=== PATIENT | female | born 1935 | race Hispanic/Latino ===

== ENCOUNTER 2022-09-12 14:08 | Inpatient (IN) | payer MEDICARE, BC, OTHER ==
[2022-09-12] MEDS ORDERED: Senokot S 8.6-50 MG TAB PO PRN (20:51)
[2022-09-12] MEDS ORDERED: [UNRECOGNIZED DRUG - REMARK] TOP PRN (20:51)
[2022-09-12 22:22] LABS: Bilirubin Small (Negative); Blood, Urine Negative (Negative); Clarity Clear (Clear); Glucose, Urine (Dipstick) Negative (Negative); Ketone, Urine Trace mg/dL (Negative); Leukocyte Negative (Negative); Nitrite Negative (Negative); Protein, Urine (Dipstick) 30 mg/dL (Neg-Trace); Urobilinogen > or = 8.0 mg/dL (Less than 2); pH, Urine 8.5 (5.0-9.0)
[2022-09-12 22:32] LABS: Bacteria/HPF Rare-Few HPF (None Seen); Mucous/LPF 1+ LPF (<2+); RBC/HPF None Seen HPF (0-3); Squamous Epithelial 0-3 HPF (0-3); WBC/HPF None Seen HPF (0-3)
[2022-09-12] MEDS: Dorzolamide HCl 2% Ophth Soln 10 ml Bottle EA EYE SCH (22:47)
[2022-09-12] MEDS: Latanoprost 0.005% Ophth Soln 2.5 ml Bottle EA EYE SCH (22:48)
[2022-09-12] MEDS: Metoprolol Tartrate 50 MG TAB PO SCH (22:49)
[2022-09-12] MEDS: Atorvastatin Calcium 40 MG TAB PO SCH (22:49)
[2022-09-12] MEDS: hydrALAZINE 25 MG TAB PO SCH (22:57)
[2022-09-12] MEDS: Timolol 0.5% Ophth Soln 5 ml Bottle EA EYE SCH (22:57)
[2022-09-13] MEDS: hydrALAZINE 25 MG TAB PO SCH ×3 (10:10→21:07)
[2022-09-13] MEDS: Potassium Chloride 20 MEQ TAB PO SCH (10:10)
[2022-09-13] MEDS: Amlodipine 5 MG TAB PO SCH (10:10)
[2022-09-13] MEDS: Saccharomyces boulardii 250 MG CAP PO SCH (10:11)
[2022-09-13] MEDS: Metoprolol Tartrate 50 MG TAB PO SCH ×2 (10:11→21:08)
[2022-09-13] MEDS: Losartan 25 MG TAB PO SCH (10:11)
[2022-09-13] MEDS: Timolol 0.5% Ophth Soln 5 ml Bottle EA EYE SCH ×2 (10:12→21:13)
[2022-09-13] MEDS: Dorzolamide HCl 2% Ophth Soln 10 ml Bottle EA EYE SCH ×2 (10:12→21:04)
[2022-09-13 12:18] VITALS: BMI 33.1
[2022-09-13] MEDS: Latanoprost 0.005% Ophth Soln 2.5 ml Bottle EA EYE SCH (21:04)
[2022-09-13] MEDS: Atorvastatin Calcium 40 MG TAB PO SCH (21:07)
[2022-09-13] MEDS: Acetaminophen 325 MG TAB PO PRN (21:09)
[2022-09-14 05:51] LABS: Anion Gap 11 mmol/L (10-20); BUN (Urea Nitrogen) 8 mg/dL (9.8-20.1); Calc. Creatinine Clearance 93 mL/min (70-130); Calcium 8.7 mg/dL (7.8-10.44); Carbon Dioxide 24 mmol/L (23-31); Chloride 107 mmol/L (98-107); Estimated GFR 90; Glucose 108 mg/dL (83-110); Potassium 3.6 mmol/L (3.5-5.1); Sodium 138 mmol/L (136-145)
[2022-09-14] MEDS: Metoprolol Tartrate 50 MG TAB PO SCH ×2 (09:34→20:08)
[2022-09-14] MEDS: Potassium Chloride 20 MEQ TAB PO SCH (09:35)
[2022-09-14] MEDS: Pantoprazole 40 MG GRANULES PACKET PO SCH (09:36)
[2022-09-14] MEDS: Losartan 25 MG TAB PO SCH (09:36)
[2022-09-14] MEDS: Amlodipine 5 MG TAB PO SCH (09:37)
[2022-09-14] MEDS: Saccharomyces boulardii 250 MG CAP PO SCH (09:38)
[2022-09-14] MEDS: hydrALAZINE 25 MG TAB PO SCH ×3 (09:38→20:08)
[2022-09-14] MEDS: Timolol 0.5% Ophth Soln 5 ml Bottle EA EYE SCH ×2 (09:39→20:09)
[2022-09-14] MEDS: Dorzolamide HCl 2% Ophth Soln 10 ml Bottle EA EYE SCH ×2 (09:40→20:05)
[2022-09-14] MEDS: Acetaminophen 325 MG TAB PO PRN (15:13)
[2022-09-14] MEDS: Atorvastatin Calcium 40 MG TAB PO SCH (20:07)
[2022-09-14] MEDS: Latanoprost 0.005% Ophth Soln 2.5 ml Bottle EA EYE SCH (20:16)
[2022-09-15] MEDS: Saccharomyces boulardii 250 MG CAP PO SCH (09:32)
[2022-09-15] MEDS: Pantoprazole 40 MG GRANULES PACKET PO SCH (09:32)
[2022-09-15] MEDS: Losartan 25 MG TAB PO SCH ×2 (09:32→10:02)
[2022-09-15] MEDS: Metoprolol Tartrate 50 MG TAB PO SCH ×2 (09:35→22:03)
[2022-09-15] MEDS: Acetaminophen 325 MG TAB PO PRN ×2 (09:40→22:03)
[2022-09-15] MEDS: Potassium Chloride 20 MEQ TAB PO SCH (09:40)
[2022-09-15] MEDS: Timolol 0.5% Ophth Soln 5 ml Bottle EA EYE SCH ×2 (09:57→21:28)
[2022-09-15] MEDS: Dorzolamide HCl 2% Ophth Soln 10 ml Bottle EA EYE SCH ×2 (10:00→21:48)
[2022-09-15] MEDS: Amlodipine 5 MG TAB PO SCH (10:01)
[2022-09-15] MEDS: hydrALAZINE 25 MG TAB PO SCH ×3 (10:03→22:04)
[2022-09-15] MEDS: Latanoprost 0.005% Ophth Soln 2.5 ml Bottle EA EYE SCH (22:01)
[2022-09-15] MEDS: Atorvastatin Calcium 40 MG TAB PO SCH (22:02)
[2022-09-16] MEDS: Potassium Chloride 20 MEQ TAB PO SCH (08:18)
[2022-09-16] MEDS: Losartan 25 MG TAB PO SCH (08:19)
[2022-09-16] MEDS: Amlodipine 5 MG TAB PO SCH (08:19)
[2022-09-16] MEDS: Pantoprazole 40 MG GRANULES PACKET PO SCH (08:21)
[2022-09-16] MEDS: hydrALAZINE 25 MG TAB PO SCH ×3 (08:21→21:47)
[2022-09-16] MEDS: Saccharomyces boulardii 250 MG CAP PO SCH (08:21)
[2022-09-16] MEDS: Metoprolol Tartrate 50 MG TAB PO SCH ×2 (08:21→21:47)
[2022-09-16] MEDS: Timolol 0.5% Ophth Soln 5 ml Bottle EA EYE SCH ×2 (08:22→21:19)
[2022-09-16] MEDS: Dorzolamide HCl 2% Ophth Soln 10 ml Bottle EA EYE SCH ×2 (08:27→21:47)
[2022-09-16] MEDS: Acetaminophen 325 MG TAB PO PRN ×2 (12:07→21:48)
[2022-09-16] MEDS: Latanoprost 0.005% Ophth Soln 2.5 ml Bottle EA EYE SCH (21:34)
[2022-09-16] MEDS: Atorvastatin Calcium 40 MG TAB PO SCH (21:47)
[2022-09-17] MEDS: Dorzolamide HCl 2% Ophth Soln 10 ml Bottle EA EYE SCH ×2 (08:50→21:25)
[2022-09-17] MEDS: Timolol 0.5% Ophth Soln 5 ml Bottle EA EYE SCH ×2 (08:51→21:19)
[2022-09-17] MEDS: hydrALAZINE 25 MG TAB PO SCH ×3 (08:52→21:27)
[2022-09-17] MEDS: Pantoprazole 40 MG GRANULES PACKET PO SCH (08:55)
[2022-09-17] MEDS: Losartan 25 MG TAB PO SCH (08:57)
[2022-09-17] MEDS: Saccharomyces boulardii 250 MG CAP PO SCH (08:57)
[2022-09-17] MEDS: Metoprolol Tartrate 50 MG TAB PO SCH ×2 (08:57→21:27)
[2022-09-17] MEDS: Amlodipine 5 MG TAB PO SCH (08:58)
[2022-09-17] MEDS: Potassium Chloride 20 MEQ TAB PO SCH (08:58)
[2022-09-17] MEDS: Acetaminophen 325 MG TAB PO PRN ×2 (15:10→21:27)
[2022-09-17] MEDS: Latanoprost 0.005% Ophth Soln 2.5 ml Bottle EA EYE SCH (21:13)
[2022-09-17] MEDS: Atorvastatin Calcium 40 MG TAB PO SCH (21:27)
[2022-09-18] MEDS: Acetaminophen 325 MG TAB PO PRN ×3 (04:20→21:31)
[2022-09-18] MEDS: hydrALAZINE 25 MG TAB PO SCH ×3 (08:04→21:30)
[2022-09-18] MEDS: Losartan 25 MG TAB PO SCH (08:04)
[2022-09-18] MEDS: Amlodipine 5 MG TAB PO SCH (08:05)
[2022-09-18] MEDS: Potassium Chloride 20 MEQ TAB PO SCH (08:05)
[2022-09-18] MEDS: Saccharomyces boulardii 250 MG CAP PO SCH (08:05)
[2022-09-18] MEDS: Pantoprazole 40 MG GRANULES PACKET PO SCH (08:06)
[2022-09-18] MEDS: Metoprolol Tartrate 50 MG TAB PO SCH ×2 (08:06→21:30)
[2022-09-18] MEDS: Dorzolamide HCl 2% Ophth Soln 10 ml Bottle EA EYE SCH ×2 (08:18→21:30)
[2022-09-18] MEDS: Timolol 0.5% Ophth Soln 5 ml Bottle EA EYE SCH ×2 (08:20→21:43)
[2022-09-18] MEDS: Latanoprost 0.005% Ophth Soln 2.5 ml Bottle EA EYE SCH (21:20)
[2022-09-18] MEDS: Atorvastatin Calcium 40 MG TAB PO SCH (21:30)
[2022-09-19 05:31] LABS: ALT (SGPT) 24 U/L (8-55); AST (SGOT) 27 U/L (5-34); Albumin 3.3 g/dL (3.4-4.8); Alkaline Phosphatase 102 U/L (40-110); Anion Gap 13 mmol/L (10-20); BUN (Urea Nitrogen) 14 mg/dL (9.8-20.1); Bilirubin, Total 0.7 mg/dL (0.2-1.2); Calc. Creatinine Clearance 81 mL/min (70-130); Calcium 9.2 mg/dL (7.8-10.44); Carbon Dioxide 22 mmol/L (23-31); Chloride 108 mmol/L (98-107); Estimated GFR 87; Globulin 2.5 g/dL (2.4-3.5); Glucose 101 mg/dL (83-110); Potassium 3.7 mmol/L (3.5-5.1); Protein, Total 5.8 g/dL (5.8-8.1); Sodium 139 mmol/L (136-145)
[2022-09-19] MEDS: Dorzolamide HCl 2% Ophth Soln 10 ml Bottle EA EYE SCH ×2 (08:41→21:30)
[2022-09-19] MEDS: Timolol 0.5% Ophth Soln 5 ml Bottle EA EYE SCH ×2 (08:41→21:29)
[2022-09-19] MEDS: Acetaminophen 325 MG TAB PO PRN (08:42)
[2022-09-19] MEDS: Potassium Chloride 20 MEQ TAB PO SCH (08:43)
[2022-09-19] MEDS: Amlodipine 5 MG TAB PO SCH (08:44)
[2022-09-19] MEDS: Losartan 25 MG TAB PO SCH (08:44)
[2022-09-19] MEDS: Pantoprazole 40 MG GRANULES PACKET PO SCH (08:45)
[2022-09-19] MEDS: Metoprolol Tartrate 50 MG TAB PO SCH ×2 (08:45→21:29)
[2022-09-19] MEDS: hydrALAZINE 25 MG TAB PO SCH ×3 (08:45→21:28)
[2022-09-19] MEDS: Saccharomyces boulardii 250 MG CAP PO SCH (08:45)
[2022-09-19] MEDS: Atorvastatin Calcium 40 MG TAB PO SCH (21:29)
[2022-09-19] MEDS: Latanoprost 0.005% Ophth Soln 2.5 ml Bottle EA EYE SCH (21:30)
[2022-09-20] MEDS: Acetaminophen 325 MG TAB PO PRN (08:38)
[2022-09-20] MEDS: Dorzolamide HCl 2% Ophth Soln 10 ml Bottle EA EYE SCH ×2 (08:39→20:32)
[2022-09-20] MEDS: Timolol 0.5% Ophth Soln 5 ml Bottle EA EYE SCH ×2 (08:41→20:32)
[2022-09-20] MEDS: hydrALAZINE 25 MG TAB PO SCH ×3 (08:42→20:32)
[2022-09-20] MEDS: Metoprolol Tartrate 50 MG TAB PO SCH ×2 (08:42→20:32)
[2022-09-20] MEDS: Pantoprazole 40 MG GRANULES PACKET PO SCH (08:42)
[2022-09-20] MEDS: Saccharomyces boulardii 250 MG CAP PO SCH (08:43)
[2022-09-20] MEDS: Amlodipine 5 MG TAB PO SCH (08:43)
[2022-09-20] MEDS: Potassium Chloride 20 MEQ TAB PO SCH (08:43)
[2022-09-20] MEDS: Losartan 25 MG TAB PO SCH (08:44)
[2022-09-20] MEDS: Atorvastatin Calcium 40 MG TAB PO SCH (20:32)
[2022-09-20] MEDS: Latanoprost 0.005% Ophth Soln 2.5 ml Bottle EA EYE SCH (20:33)
[2022-09-21] MEDS: Saccharomyces boulardii 250 MG CAP PO SCH (09:06)
[2022-09-21] MEDS: Potassium Chloride 20 MEQ TAB PO SCH (09:06)
[2022-09-21] MEDS: Pantoprazole 40 MG GRANULES PACKET PO SCH (09:06)
[2022-09-21] MEDS: Losartan 25 MG TAB PO SCH (09:08)
[2022-09-21] MEDS: hydrALAZINE 25 MG TAB PO SCH ×3 (09:08→20:38)
[2022-09-21] MEDS: Dorzolamide HCl 2% Ophth Soln 10 ml Bottle EA EYE SCH ×2 (09:09→20:52)
[2022-09-21] MEDS: Amlodipine 5 MG TAB PO SCH (09:09)
[2022-09-21] MEDS: Metoprolol Tartrate 50 MG TAB PO SCH ×2 (09:09→20:53)
[2022-09-21] MEDS: Timolol 0.5% Ophth Soln 5 ml Bottle EA EYE SCH ×2 (09:12→20:52)
[2022-09-21] MEDS: Acetaminophen 325 MG TAB PO PRN ×2 (11:29→20:51)
[2022-09-21] MEDS: Atorvastatin Calcium 40 MG TAB PO SCH (20:38)
[2022-09-21] MEDS: Latanoprost 0.005% Ophth Soln 2.5 ml Bottle EA EYE SCH (20:52)
[2022-09-22 05:43] LABS: ALT (SGPT) 16 U/L (8-55); AST (SGOT) 18 U/L (5-34); Albumin 3.5 g/dL (3.4-4.8); Alkaline Phosphatase 96 U/L (40-110); Anion Gap 13 mmol/L (10-20); BUN (Urea Nitrogen) 14 mg/dL (9.8-20.1); Bilirubin, Total 0.9 mg/dL (0.2-1.2); Calc. Creatinine Clearance 83 mL/min (70-130); Calcium 9.1 mg/dL (7.8-10.44); Carbon Dioxide 23 mmol/L (23-31); Chloride 106 mmol/L (98-107); Estimated GFR 87; Globulin 2.7 g/dL (2.4-3.5); Glucose 122 mg/dL (83-110); Potassium 3.7 mmol/L (3.5-5.1); Protein, Total 6.2 g/dL (5.8-8.1); Sodium 138 mmol/L (136-145)
[2022-09-22 06:02] LABS: Hemoglobin 11.5 g/dL (12.0-16.0); Lymphocytes 20 % (21-51); MDiff Complete? YES; Mean Corpuscular Volume 88.4 fl (78.0-98.0); Mean Platelet Volume 8.2 fL (7.4-10.4); Monocytes 15 % (0-10); Neutrophil 64 % (42-75); Platelet Count 141 10x3/uL (130-400); RBC Distribution Width 14.4 % (11.5-14.5); Red Blood Cell (RBC) Count 3.83 mill/uL (4.20-5.40); White Blood Cell (WBC) Count 5.5 10x3/uL (4.8-10.8)
[2022-09-22] MEDS: hydrALAZINE 25 MG TAB PO SCH ×3 (09:04→21:24)
[2022-09-22] MEDS: Potassium Chloride 20 MEQ TAB PO SCH (09:04)
[2022-09-22] MEDS: Losartan 25 MG TAB PO SCH (09:05)
[2022-09-22] MEDS: Saccharomyces boulardii 250 MG CAP PO SCH (09:06)
[2022-09-22] MEDS: Amlodipine 5 MG TAB PO SCH (09:07)
[2022-09-22] MEDS: Dorzolamide HCl 2% Ophth Soln 10 ml Bottle EA EYE SCH ×2 (09:11→21:42)
[2022-09-22] MEDS: Metoprolol Tartrate 50 MG TAB PO SCH ×2 (09:12→21:24)
[2022-09-22] MEDS: Pantoprazole 40 MG GRANULES PACKET PO SCH (09:13)
[2022-09-22] MEDS: Timolol 0.5% Ophth Soln 5 ml Bottle EA EYE SCH ×2 (09:14→21:43)
[2022-09-22] MEDS: Acetaminophen 325 MG TAB PO PRN (13:37)
[2022-09-22] MEDS: Atorvastatin Calcium 40 MG TAB PO SCH (21:24)
[2022-09-22] MEDS: Latanoprost 0.005% Ophth Soln 2.5 ml Bottle EA EYE SCH (21:42)
[2022-09-23] MEDS: Dorzolamide HCl 2% Ophth Soln 10 ml Bottle EA EYE SCH ×2 (08:53→20:10)
[2022-09-23] MEDS: Timolol 0.5% Ophth Soln 5 ml Bottle EA EYE SCH ×2 (08:54→20:16)
[2022-09-23] MEDS: Acetaminophen 325 MG TAB PO PRN ×2 (08:55→15:09)
[2022-09-23] MEDS: Pantoprazole 40 MG GRANULES PACKET PO SCH (08:56)
[2022-09-23] MEDS: Amlodipine 5 MG TAB PO SCH (08:56)
[2022-09-23] MEDS: Losartan 25 MG TAB PO SCH (08:57)
[2022-09-23] MEDS: Potassium Chloride 20 MEQ TAB PO SCH (08:57)
[2022-09-23] MEDS: Metoprolol Tartrate 50 MG TAB PO SCH ×2 (08:59→20:11)
[2022-09-23] MEDS: hydrALAZINE 25 MG TAB PO SCH ×3 (08:59→20:11)
[2022-09-23] MEDS: Saccharomyces boulardii 250 MG CAP PO SCH (09:03)
[2022-09-23] MEDS: Atorvastatin Calcium 40 MG TAB PO SCH (20:11)
[2022-09-23] MEDS: Latanoprost 0.005% Ophth Soln 2.5 ml Bottle EA EYE SCH (20:21)
[2022-09-24] MEDS: Potassium Chloride 20 MEQ TAB PO SCH (09:05)
[2022-09-24] MEDS: Losartan 25 MG TAB PO SCH (09:06)
[2022-09-24] MEDS: Saccharomyces boulardii 250 MG CAP PO SCH (09:06)
[2022-09-24] MEDS: hydrALAZINE 25 MG TAB PO SCH ×3 (09:06→21:00)
[2022-09-24] MEDS: Metoprolol Tartrate 50 MG TAB PO SCH ×2 (09:07→21:00)
[2022-09-24] MEDS: Amlodipine 5 MG TAB PO SCH (09:07)
[2022-09-24] MEDS: Pantoprazole 40 MG GRANULES PACKET PO SCH (09:07)
[2022-09-24] MEDS: Dorzolamide HCl 2% Ophth Soln 10 ml Bottle EA EYE SCH ×2 (09:21→20:58)
[2022-09-24] MEDS: Timolol 0.5% Ophth Soln 5 ml Bottle EA EYE SCH ×2 (09:21→21:08)
[2022-09-24] MEDS: Atorvastatin Calcium 40 MG TAB PO SCH (21:00)
[2022-09-24] MEDS: Latanoprost 0.005% Ophth Soln 2.5 ml Bottle EA EYE SCH (21:14)
[2022-09-25] MEDS: Potassium Chloride 20 MEQ TAB PO SCH (08:54)
[2022-09-25] MEDS: Amlodipine 5 MG TAB PO SCH (08:55)
[2022-09-25] MEDS: Pantoprazole 40 MG GRANULES PACKET PO SCH (08:55)
[2022-09-25] MEDS: Metoprolol Tartrate 50 MG TAB PO SCH ×2 (08:55→21:06)
[2022-09-25] MEDS: Losartan 25 MG TAB PO SCH (08:55)
[2022-09-25] MEDS: hydrALAZINE 25 MG TAB PO SCH ×3 (08:55→21:06)
[2022-09-25] MEDS: Dorzolamide HCl 2% Ophth Soln 10 ml Bottle EA EYE SCH ×2 (08:56→21:21)
[2022-09-25] MEDS: Timolol 0.5% Ophth Soln 5 ml Bottle EA EYE SCH ×2 (08:56→21:13)
[2022-09-25] MEDS: Saccharomyces boulardii 250 MG CAP PO SCH (08:56)
[2022-09-25] MEDS: Acetaminophen 325 MG TAB PO PRN (15:30)
[2022-09-25] MEDS: Latanoprost 0.005% Ophth Soln 2.5 ml Bottle EA EYE SCH (21:15)
[2022-09-25] MEDS: tiZANidine HCl 4 MG TAB PO SCH (21:22)
[2022-09-25] MEDS: Atorvastatin Calcium 40 MG TAB PO SCH (21:22)
[2022-09-26] MEDS: Pantoprazole 40 MG GRANULES PACKET PO SCH (08:13)
[2022-09-26] MEDS: Losartan 25 MG TAB PO SCH (08:13)
[2022-09-26] MEDS: hydrALAZINE 25 MG TAB PO SCH ×3 (08:13→21:00)
[2022-09-26] MEDS: Amlodipine 5 MG TAB PO SCH (08:14)
[2022-09-26] MEDS: Saccharomyces boulardii 250 MG CAP PO SCH (08:14)
[2022-09-26] MEDS: Potassium Chloride 20 MEQ TAB PO SCH (08:15)
[2022-09-26] MEDS: Metoprolol Tartrate 50 MG TAB PO SCH ×2 (08:16→21:00)
[2022-09-26] MEDS: tiZANidine HCl 4 MG TAB PO SCH ×2 (08:17→21:00)
[2022-09-26] MEDS: Timolol 0.5% Ophth Soln 5 ml Bottle EA EYE SCH ×2 (08:31→21:12)
[2022-09-26] MEDS: Dorzolamide HCl 2% Ophth Soln 10 ml Bottle EA EYE SCH ×2 (08:32→21:00)
[2022-09-26] MEDS: Atorvastatin Calcium 40 MG TAB PO SCH (21:00)
[2022-09-26] MEDS: Latanoprost 0.005% Ophth Soln 2.5 ml Bottle EA EYE SCH (21:07)
[2022-09-27] MEDS: hydrALAZINE 25 MG TAB PO SCH ×3 (08:44→21:12)
[2022-09-27] MEDS: Saccharomyces boulardii 250 MG CAP PO SCH (08:45)
[2022-09-27] MEDS: Losartan 25 MG TAB PO SCH (08:46)
[2022-09-27] MEDS: Potassium Chloride 20 MEQ TAB PO SCH (08:46)
[2022-09-27] MEDS: tiZANidine HCl 4 MG TAB PO SCH ×2 (08:48→21:13)
[2022-09-27] MEDS: Amlodipine 5 MG TAB PO SCH (08:48)
[2022-09-27] MEDS: Metoprolol Tartrate 50 MG TAB PO SCH ×2 (08:49→21:13)
[2022-09-27] MEDS: Dorzolamide HCl 2% Ophth Soln 10 ml Bottle EA EYE SCH ×2 (08:50→20:53)
[2022-09-27] MEDS: Pantoprazole 40 MG GRANULES PACKET PO SCH (08:51)
[2022-09-27] MEDS: Timolol 0.5% Ophth Soln 5 ml Bottle EA EYE SCH ×2 (08:52→20:48)
[2022-09-27] MEDS: Acetaminophen 325 MG TAB PO PRN (09:17)
[2022-09-27] MEDS: Latanoprost 0.005% Ophth Soln 2.5 ml Bottle EA EYE SCH (21:11)
[2022-09-27] MEDS: Atorvastatin Calcium 40 MG TAB PO SCH (21:12)
[2022-09-28] MEDS: hydrALAZINE 25 MG TAB PO SCH ×3 (08:47→21:46)
[2022-09-28] MEDS: Losartan 25 MG TAB PO SCH (08:48)
[2022-09-28] MEDS: Potassium Chloride 20 MEQ TAB PO SCH (08:49)
[2022-09-28] MEDS: Metoprolol Tartrate 50 MG TAB PO SCH ×2 (08:50→21:46)
[2022-09-28] MEDS: Amlodipine 5 MG TAB PO SCH (08:50)
[2022-09-28] MEDS: Pantoprazole 40 MG GRANULES PACKET PO SCH (08:51)
[2022-09-28] MEDS: tiZANidine HCl 4 MG TAB PO SCH ×2 (08:51→21:46)
[2022-09-28] MEDS: Saccharomyces boulardii 250 MG CAP PO SCH (08:51)
[2022-09-28] MEDS: Timolol 0.5% Ophth Soln 5 ml Bottle EA EYE SCH ×2 (08:52→21:59)
[2022-09-28] MEDS: Dorzolamide HCl 2% Ophth Soln 10 ml Bottle EA EYE SCH ×2 (08:52→21:46)
[2022-09-28] MEDS: Acetaminophen 325 MG TAB PO PRN (11:43)
[2022-09-28] MEDS: Atorvastatin Calcium 40 MG TAB PO SCH (21:46)
[2022-09-28] MEDS: Latanoprost 0.005% Ophth Soln 2.5 ml Bottle EA EYE SCH (21:54)
[2022-09-29] MEDS ORDERED: Sodium Chloride 0.9% 1,000 ML IV SCH (08:00)
[2022-09-29] MEDS: Timolol 0.5% Ophth Soln 5 ml Bottle EA EYE SCH ×2 (09:14→20:05)
[2022-09-29] MEDS: Pantoprazole 40 MG GRANULES PACKET PO SCH (09:16)
[2022-09-29] MEDS: hydrALAZINE 25 MG TAB PO SCH ×3 (09:16→20:06)
[2022-09-29] MEDS: Losartan 25 MG TAB PO SCH (09:17)
[2022-09-29] MEDS: Potassium Chloride 20 MEQ TAB PO SCH (09:18)
[2022-09-29] MEDS: Amlodipine 5 MG TAB PO SCH (09:19)
[2022-09-29] MEDS: tiZANidine HCl 4 MG TAB PO SCH ×2 (09:19→20:06)
[2022-09-29] MEDS: Metoprolol Tartrate 50 MG TAB PO SCH ×2 (09:20→20:07)
[2022-09-29] MEDS: Dorzolamide HCl 2% Ophth Soln 10 ml Bottle EA EYE SCH ×2 (09:34→20:16)
[2022-09-29] MEDS: Saccharomyces boulardii 250 MG CAP PO SCH (09:38)
[2022-09-29 11:49] LABS: #Lymphocytes 1.4 thou/uL (1.20-3.40); #Monocytes 1.3 thou/uL (0.11-0.59); #Neutrophils 5.8 thou/uL (1.40-6.50); %Basophils 0.4 % (0.0-1.0); %Eosinophils 0.1 % (0.0-10.0); %Lymphocytes 16.1 % (21.0-51.0); %Monocytes 14.8 % (0.0-10.0); %Neutrophils 68.5 % (42.0-75.0); Hemoglobin 10.2 g/dL (12.0-16.0); Mean Corpuscular HGB CONC 33.8 g/dL (32.0-36.0); Mean Corpuscular Hemoglobin 29.8 pg (27.0-31.0); Mean Corpuscular Volume 88.1 fl (78.0-98.0); Mean Platelet Volume 8.2 fL (7.4-10.4); Platelet Count 192 10x3/uL (130-400); RBC Distribution Width 14.1 % (11.5-14.5); Red Blood Cell (RBC) Count 3.42 mill/uL (4.20-5.40); White Blood Cell (WBC) Count 8.5 10x3/uL (4.8-10.8)
[2022-09-29 12:08] LABS: ALT (SGPT) 20 U/L (8-55); AST (SGOT) 27 U/L (5-34); Albumin 2.9 g/dL (3.4-4.8); Alkaline Phosphatase 71 U/L (40-110); Anion Gap 12 mmol/L (10-20); BUN (Urea Nitrogen) 23 mg/dL (9.8-20.1); Bilirubin, Total 0.8 mg/dL (0.2-1.2); Calc. Creatinine Clearance 74 mL/min (70-130); Calcium 8.6 mg/dL (7.8-10.44); Carbon Dioxide 21 mmol/L (23-31); Chloride 113 mmol/L (98-107); Estimated GFR 85; Globulin 2.7 g/dL (2.4-3.5); Glucose 120 mg/dL (83-110); Potassium 4.2 mmol/L (3.5-5.1); Protein, Total 5.6 g/dL (5.8-8.1); Sodium 142 mmol/L (136-145)
[2022-09-29 12:21] LABS: Bilirubin Negative (Negative); Blood, Urine Negative (Negative); CAUTI Indications for Culture Alt mental st,lethar; Clarity Clear (Clear); Glucose, Urine (Dipstick) Negative (Negative); Ketone, Urine Negative (Negative); Leukocyte Negative (Negative); Nitrite Negative (Negative); Protein, Urine (Dipstick) Trace mg/dL (Neg-Trace)
[2022-09-29 12:34] LABS: Urine Culture Reflex No No
[2022-09-29 12:38] LABS: Bacteria/HPF Rare-Few HPF (None Seen); RBC/HPF None Seen HPF (0-3); Squamous Epithelial None Seen HPF (0-3); WBC/HPF None Seen HPF (0-3)
[2022-09-29] MEDS: Acetaminophen 325 MG TAB PO PRN ×2 (17:16→20:17)
[2022-09-29] MEDS: Atorvastatin Calcium 40 MG TAB PO SCH (20:06)
[2022-09-29] MEDS: Latanoprost 0.005% Ophth Soln 2.5 ml Bottle EA EYE SCH (20:18)
[2022-09-30] MEDS: tiZANidine HCl 4 MG TAB PO SCH ×2 (08:35→20:27)
[2022-09-30] MEDS: Dorzolamide HCl 2% Ophth Soln 10 ml Bottle EA EYE SCH ×2 (08:35→20:26)
[2022-09-30] MEDS: Timolol 0.5% Ophth Soln 5 ml Bottle EA EYE SCH ×2 (08:35→20:11)
[2022-09-30] MEDS: Losartan 25 MG TAB PO SCH (08:36)
[2022-09-30] MEDS: Potassium Chloride 20 MEQ TAB PO SCH (08:36)
[2022-09-30] MEDS: Saccharomyces boulardii 250 MG CAP PO SCH (08:36)
[2022-09-30] MEDS: hydrALAZINE 25 MG TAB PO SCH ×3 (08:37→20:27)
[2022-09-30] MEDS: Metoprolol Tartrate 50 MG TAB PO SCH ×2 (08:37→20:27)
[2022-09-30] MEDS: Amlodipine 5 MG TAB PO SCH (08:37)
[2022-09-30] MEDS: Pantoprazole 40 MG GRANULES PACKET PO SCH (08:38)
[2022-09-30] MEDS: Latanoprost 0.005% Ophth Soln 2.5 ml Bottle EA EYE SCH (20:21)
[2022-09-30] MEDS: Atorvastatin Calcium 40 MG TAB PO SCH (20:27)
[2022-10-01] MEDS: Losartan 25 MG TAB PO SCH (08:30)
[2022-10-01] MEDS: Saccharomyces boulardii 250 MG CAP PO SCH (08:30)
[2022-10-01] MEDS: Potassium Chloride 20 MEQ TAB PO SCH (08:30)
[2022-10-01] MEDS: Pantoprazole 40 MG GRANULES PACKET PO SCH (08:31)
[2022-10-01] MEDS: Metoprolol Tartrate 50 MG TAB PO SCH ×2 (08:31→20:56)
[2022-10-01] MEDS: tiZANidine HCl 4 MG TAB PO SCH ×2 (08:31→20:56)
[2022-10-01] MEDS: hydrALAZINE 25 MG TAB PO SCH ×3 (08:39→20:56)
[2022-10-01] MEDS: Amlodipine 5 MG TAB PO SCH (08:39)
[2022-10-01] MEDS: Dorzolamide HCl 2% Ophth Soln 10 ml Bottle EA EYE SCH ×2 (08:53→20:55)
[2022-10-01] MEDS: Timolol 0.5% Ophth Soln 5 ml Bottle EA EYE SCH ×2 (08:54→20:26)
[2022-10-01] MEDS: Latanoprost 0.005% Ophth Soln 2.5 ml Bottle EA EYE SCH (20:32)
[2022-10-01] MEDS: Atorvastatin Calcium 40 MG TAB PO SCH (20:56)
[2022-10-02 05:28] LABS: #Basophils 0.1 thou/uL (0.0-0.2); #Lymphocytes 1.1 thou/uL (1.20-3.40); #Monocytes 0.9 thou/uL (0.11-0.59); #Neutrophils 6.2 thou/uL (1.40-6.50); %Basophils 0.8 % (0.0-1.0); %Eosinophils 0.3 % (0.0-10.0); %Lymphocytes 13.4 % (21.0-51.0); %Monocytes 10.7 % (0.0-10.0); %Neutrophils 74.8 % (42.0-75.0); Hemoglobin 10.9 g/dL (12.0-16.0); Mean Corpuscular HGB CONC 33.5 g/dL (32.0-36.0); Mean Corpuscular Hemoglobin 29.5 pg (27.0-31.0); Mean Corpuscular Volume 87.9 fl (78.0-98.0); Mean Platelet Volume 7.6 fL (7.4-10.4); Platelet Count 261 10x3/uL (130-400); Red Blood Cell (RBC) Count 3.71 mill/uL (4.20-5.40); White Blood Cell (WBC) Count 8.3 10x3/uL (4.8-10.8)
[2022-10-02 05:55] LABS: ALT (SGPT) 25 U/L (8-55); AST (SGOT) 25 U/L (5-34); Albumin 3.5 g/dL (3.4-4.8); Alkaline Phosphatase 92 U/L (40-110); Anion Gap 13 mmol/L (10-20); BUN (Urea Nitrogen) 18 mg/dL (9.8-20.1); Bilirubin, Total 0.9 mg/dL (0.2-1.2); Calc. Creatinine Clearance 74 mL/min (70-130); Calcium 9.5 mg/dL (7.8-10.44); Carbon Dioxide 24 mmol/L (23-31); Chloride 108 mmol/L (98-107); Estimated GFR 85; Globulin 3.2 g/dL (2.4-3.5); Glucose 124 mg/dL (83-110); Potassium 3.6 mmol/L (3.5-5.1); Protein, Total 6.7 g/dL (5.8-8.1); Sodium 141 mmol/L (136-145)
[2022-10-02] MEDS: Acetaminophen 325 MG TAB PO PRN (09:09)
[2022-10-02] MEDS: hydrALAZINE 25 MG TAB PO SCH ×3 (09:10→20:27)
[2022-10-02] MEDS: Pantoprazole 40 MG GRANULES PACKET PO SCH (09:11)
[2022-10-02] MEDS: Losartan 25 MG TAB PO SCH (09:11)
[2022-10-02] MEDS: Potassium Chloride 20 MEQ TAB PO SCH (09:12)
[2022-10-02] MEDS: Metoprolol Tartrate 50 MG TAB PO SCH ×2 (09:13→20:27)
[2022-10-02] MEDS: Amlodipine 5 MG TAB PO SCH (09:13)
[2022-10-02] MEDS: Saccharomyces boulardii 250 MG CAP PO SCH (09:13)
[2022-10-02] MEDS: tiZANidine HCl 4 MG TAB PO SCH ×2 (09:13→20:26)
[2022-10-02] MEDS: Timolol 0.5% Ophth Soln 5 ml Bottle EA EYE SCH ×2 (09:14→20:13)
[2022-10-02] MEDS: Dorzolamide HCl 2% Ophth Soln 10 ml Bottle EA EYE SCH ×2 (09:15→20:08)
[2022-10-02] MEDS: Latanoprost 0.005% Ophth Soln 2.5 ml Bottle EA EYE SCH (20:24)
[2022-10-02] MEDS: Atorvastatin Calcium 40 MG TAB PO SCH (20:27)
[2022-10-03] MEDS: Pantoprazole 40 MG GRANULES PACKET PO SCH (09:02)
[2022-10-03] MEDS: Metoprolol Tartrate 50 MG TAB PO SCH ×2 (09:02→21:31)
[2022-10-03] MEDS: hydrALAZINE 25 MG TAB PO SCH ×3 (09:03→21:31)
[2022-10-03] MEDS: Losartan 25 MG TAB PO SCH (09:03)
[2022-10-03] MEDS: Potassium Chloride 20 MEQ TAB PO SCH (09:04)
[2022-10-03] MEDS: Saccharomyces boulardii 250 MG CAP PO SCH (09:05)
[2022-10-03] MEDS: Amlodipine 5 MG TAB PO SCH (09:06)
[2022-10-03] MEDS: tiZANidine HCl 4 MG TAB PO SCH ×2 (09:06→21:31)
[2022-10-03] MEDS: Dorzolamide HCl 2% Ophth Soln 10 ml Bottle EA EYE SCH ×2 (09:08→21:29)
[2022-10-03] MEDS: Timolol 0.5% Ophth Soln 5 ml Bottle EA EYE SCH ×2 (09:09→21:20)
[2022-10-03] MEDS: Acetaminophen 325 MG TAB PO PRN (11:06)
[2022-10-03] MEDS: Latanoprost 0.005% Ophth Soln 2.5 ml Bottle EA EYE SCH (21:13)
[2022-10-03] MEDS: Atorvastatin Calcium 40 MG TAB PO SCH (21:31)
[2022-10-04] MEDS: Losartan 25 MG TAB PO SCH (09:21)
[2022-10-04] MEDS: Timolol 0.5% Ophth Soln 5 ml Bottle EA EYE SCH ×2 (09:22→22:11)
[2022-10-04] MEDS: Dorzolamide HCl 2% Ophth Soln 10 ml Bottle EA EYE SCH ×2 (09:25→22:01)
[2022-10-04] MEDS: Saccharomyces boulardii 250 MG CAP PO SCH (09:25)
[2022-10-04] MEDS: Potassium Chloride 20 MEQ TAB PO SCH (09:26)
[2022-10-04] MEDS: Amlodipine 5 MG TAB PO SCH (09:26)
[2022-10-04] MEDS: hydrALAZINE 25 MG TAB PO SCH ×3 (09:27→22:00)
[2022-10-04] MEDS: Metoprolol Tartrate 50 MG TAB PO SCH ×2 (09:27→22:01)
[2022-10-04] MEDS: tiZANidine HCl 4 MG TAB PO SCH ×2 (09:27→22:00)
[2022-10-04] MEDS: Acetaminophen 325 MG TAB PO PRN (09:34)
[2022-10-04] MEDS ORDERED: Lansoprazole 3 MG/ML ORAL SUSPENSION PER TUBE SCH (09:45)
[2022-10-04] MEDS: Pantoprazole 40 MG GRANULES PACKET PO SCH (12:27)
[2022-10-04] MEDS: Acetaminophen 325 MG TAB PO SCH (17:34)
[2022-10-04] MEDS: Atorvastatin Calcium 40 MG TAB PO SCH (22:01)
[2022-10-04] MEDS: Latanoprost 0.005% Ophth Soln 2.5 ml Bottle EA EYE SCH (22:06)
[2022-10-05] MEDS: Acetaminophen 325 MG TAB PO SCH ×3 (01:46→17:33)
[2022-10-05] MEDS: tiZANidine HCl 4 MG TAB PO SCH ×3 (09:12→23:48)
[2022-10-05] MEDS: Amlodipine 5 MG TAB PO SCH (09:16)
[2022-10-05] MEDS: Potassium Chloride 20 MEQ TAB PO SCH (09:16)
[2022-10-05] MEDS: Dorzolamide HCl 2% Ophth Soln 10 ml Bottle EA EYE SCH ×3 (09:17→23:50)
[2022-10-05] MEDS: Timolol 0.5% Ophth Soln 5 ml Bottle EA EYE SCH ×2 (09:18→23:49)
[2022-10-05] MEDS: hydrALAZINE 25 MG TAB PO SCH ×3 (09:19→23:48)
[2022-10-05] MEDS: Metoprolol Tartrate 50 MG TAB PO SCH ×2 (09:19→23:48)
[2022-10-05] MEDS: Saccharomyces boulardii 250 MG CAP PO SCH (09:19)
[2022-10-05] MEDS: Losartan 25 MG TAB PO SCH (09:19)
[2022-10-05] MEDS: Lansoprazole 3 MG/ML ORAL SUSPENSION PER TUBE SCH (09:26)
[2022-10-05] MEDS: Atorvastatin Calcium 40 MG TAB PO SCH (23:48)
[2022-10-05] MEDS: Latanoprost 0.005% Ophth Soln 2.5 ml Bottle EA EYE SCH (23:51)
[2022-10-06] MEDS: Acetaminophen 325 MG TAB PO SCH ×4 (00:38→17:11)
[2022-10-06] MEDS: Metoprolol Tartrate 50 MG TAB PO SCH ×2 (10:17→20:35)
[2022-10-06] MEDS: Losartan 25 MG TAB PO SCH (10:17)
[2022-10-06] MEDS: hydrALAZINE 25 MG TAB PO SCH ×3 (10:18→20:35)
[2022-10-06] MEDS: Potassium Chloride 20 MEQ TAB PO SCH (10:18)
[2022-10-06] MEDS: Saccharomyces boulardii 250 MG CAP PO SCH (10:19)
[2022-10-06] MEDS: tiZANidine HCl 4 MG TAB PO SCH ×3 (10:19→20:35)
[2022-10-06] MEDS: Amlodipine 5 MG TAB PO SCH (10:19)
[2022-10-06] MEDS: Timolol 0.5% Ophth Soln 5 ml Bottle EA EYE SCH ×2 (10:20→20:37)
[2022-10-06] MEDS: Dorzolamide HCl 2% Ophth Soln 10 ml Bottle EA EYE SCH ×2 (10:21→20:35)
[2022-10-06] MEDS: Lansoprazole 3 MG/ML ORAL SUSPENSION PER TUBE SCH (10:26)
[2022-10-06] MEDS: Atorvastatin Calcium 40 MG TAB PO SCH (20:35)
[2022-10-06] MEDS: Latanoprost 0.005% Ophth Soln 2.5 ml Bottle EA EYE SCH (20:37)
[2022-10-07] MEDS: Acetaminophen 325 MG TAB PO SCH ×3 (02:05→17:29)
[2022-10-07] MEDS: Lansoprazole 3 MG/ML ORAL SUSPENSION PER TUBE SCH (09:52)
[2022-10-07] MEDS: Dorzolamide HCl 2% Ophth Soln 10 ml Bottle EA EYE SCH ×2 (09:53→23:37)
[2022-10-07] MEDS: Timolol 0.5% Ophth Soln 5 ml Bottle EA EYE SCH ×2 (09:54→23:43)
[2022-10-07] MEDS: Potassium Chloride 20 MEQ TAB PO SCH (09:55)
[2022-10-07] MEDS: Saccharomyces boulardii 250 MG CAP PO SCH (09:55)
[2022-10-07] MEDS: Amlodipine 5 MG TAB PO SCH (09:56)
[2022-10-07] MEDS: Losartan 25 MG TAB PO SCH (09:56)
[2022-10-07] MEDS: Metoprolol Tartrate 50 MG TAB PO SCH ×2 (09:56→23:38)
[2022-10-07] MEDS: tiZANidine HCl 4 MG TAB PO SCH ×3 (09:57→23:38)
[2022-10-07] MEDS: hydrALAZINE 25 MG TAB PO SCH ×3 (10:00→23:38)
[2022-10-07] MEDS: Bisacodyl 5 MG TAB PO PRN (10:11)
[2022-10-07] MEDS: Atorvastatin Calcium 40 MG TAB PO SCH (23:38)
[2022-10-07] MEDS: Latanoprost 0.005% Ophth Soln 2.5 ml Bottle EA EYE SCH (23:43)
[2022-10-08] MEDS: Acetaminophen 325 MG TAB PO SCH ×3 (00:11→17:03)
[2022-10-08] MEDS: Timolol 0.5% Ophth Soln 5 ml Bottle EA EYE SCH ×2 (09:53→21:36)
[2022-10-08] MEDS: hydrALAZINE 25 MG TAB PO SCH ×3 (09:55→21:29)
[2022-10-08] MEDS: Saccharomyces boulardii 250 MG CAP PO SCH (09:55)
[2022-10-08] MEDS: Losartan 25 MG TAB PO SCH (09:55)
[2022-10-08] MEDS: Potassium Chloride 20 MEQ TAB PO SCH (09:56)
[2022-10-08] MEDS: Metoprolol Tartrate 50 MG TAB PO SCH ×2 (09:57→21:29)
[2022-10-08] MEDS: Amlodipine 5 MG TAB PO SCH (09:57)
[2022-10-08] MEDS: tiZANidine HCl 4 MG TAB PO SCH ×3 (09:57→22:06)
[2022-10-08] MEDS: Dorzolamide HCl 2% Ophth Soln 10 ml Bottle EA EYE SCH ×2 (09:58→21:30)
[2022-10-08] MEDS: Lansoprazole 3 MG/ML ORAL SUSPENSION PER TUBE SCH (10:06)
[2022-10-08] MEDS: Atorvastatin Calcium 40 MG TAB PO SCH (21:29)
[2022-10-08] MEDS: Latanoprost 0.005% Ophth Soln 2.5 ml Bottle EA EYE SCH (21:35)
[2022-10-09] MEDS: Acetaminophen 325 MG TAB PO SCH ×4 (00:46→23:33)
[2022-10-09] MEDS: Timolol 0.5% Ophth Soln 5 ml Bottle EA EYE SCH ×2 (10:00→23:31)
[2022-10-09] MEDS: Potassium Chloride 20 MEQ TAB PO SCH (10:03)
[2022-10-09] MEDS: Metoprolol Tartrate 50 MG TAB PO SCH ×2 (10:03→23:29)
[2022-10-09] MEDS: Saccharomyces boulardii 250 MG CAP PO SCH (10:04)
[2022-10-09] MEDS: Lansoprazole 3 MG/ML ORAL SUSPENSION PER TUBE SCH (10:21)
[2022-10-09] MEDS: Dorzolamide HCl 2% Ophth Soln 10 ml Bottle EA EYE SCH ×2 (10:24→23:28)
[2022-10-09] MEDS: Amlodipine 5 MG TAB PO SCH ×2 (13:18→15:39)
[2022-10-09] MEDS: hydrALAZINE 25 MG TAB PO SCH ×3 (13:19→23:28)
[2022-10-09] MEDS: Losartan 25 MG TAB PO SCH (13:20)
[2022-10-09] MEDS: tiZANidine HCl 4 MG TAB PO SCH ×3 (13:20→23:29)
[2022-10-09] MEDS: Atorvastatin Calcium 40 MG TAB PO SCH (23:28)
[2022-10-09] MEDS: Latanoprost 0.005% Ophth Soln 2.5 ml Bottle EA EYE SCH (23:31)
[2022-10-10] MEDS: Lansoprazole 3 MG/ML ORAL SUSPENSION PER TUBE SCH (09:07)
[2022-10-10] MEDS: Saccharomyces boulardii 250 MG CAP PO SCH (09:08)
[2022-10-10] MEDS: Losartan 25 MG TAB PO SCH (09:08)
[2022-10-10] MEDS: hydrALAZINE 25 MG TAB PO SCH ×3 (09:08→22:14)
[2022-10-10] MEDS: Potassium Chloride 20 MEQ TAB PO SCH (09:09)
[2022-10-10] MEDS: Metoprolol Tartrate 50 MG TAB PO SCH ×2 (09:09→22:15)
[2022-10-10] MEDS: tiZANidine HCl 4 MG TAB PO SCH ×3 (09:10→22:15)
[2022-10-10] MEDS: Dorzolamide HCl 2% Ophth Soln 10 ml Bottle EA EYE SCH ×2 (09:11→22:13)
[2022-10-10] MEDS: Timolol 0.5% Ophth Soln 5 ml Bottle EA EYE SCH ×2 (09:11→22:19)
[2022-10-10] MEDS: Acetaminophen 325 MG TAB PO SCH ×2 (09:16→17:58)
[2022-10-10] MEDS: Atorvastatin Calcium 40 MG TAB PO SCH (22:15)
[2022-10-10] MEDS: Latanoprost 0.005% Ophth Soln 2.5 ml Bottle EA EYE SCH (22:19)
[2022-10-11] MEDS: Acetaminophen 325 MG TAB PO SCH ×3 (01:20→18:00)
[2022-10-11] MEDS: Potassium Chloride 20 MEQ TAB PO SCH (08:57)
[2022-10-11] MEDS: Losartan 25 MG TAB PO SCH (08:57)
[2022-10-11] MEDS: hydrALAZINE 25 MG TAB PO SCH ×3 (08:58→22:48)
[2022-10-11] MEDS: Amlodipine 5 MG TAB PO SCH (08:59)
[2022-10-11] MEDS: Metoprolol Tartrate 50 MG TAB PO SCH ×2 (09:00→22:48)
[2022-10-11] MEDS: tiZANidine HCl 4 MG TAB PO SCH (09:00)
[2022-10-11] MEDS: Lansoprazole 3 MG/ML ORAL SUSPENSION PER TUBE SCH (09:05)
[2022-10-11] MEDS: Saccharomyces boulardii 250 MG CAP PO SCH (09:05)
[2022-10-11] MEDS: Dorzolamide HCl 2% Ophth Soln 10 ml Bottle EA EYE SCH ×2 (09:07→22:51)
[2022-10-11] MEDS: Timolol 0.5% Ophth Soln 5 ml Bottle EA EYE SCH ×2 (09:08→22:55)
[2022-10-11] MEDS ORDERED: Sodium Chloride 0.9% 1,000 ML IV SCH (11:30)
[2022-10-11] MEDS: Atorvastatin Calcium 40 MG TAB PO SCH (22:48)
[2022-10-11] MEDS: Latanoprost 0.005% Ophth Soln 2.5 ml Bottle EA EYE SCH (22:55)
[2022-10-12] MEDS: Acetaminophen 325 MG TAB PO SCH ×3 (01:56→17:26)
[2022-10-12] MEDS: Dorzolamide HCl 2% Ophth Soln 10 ml Bottle EA EYE SCH ×2 (09:04→21:25)
[2022-10-12] MEDS: Potassium Chloride 20 MEQ TAB PO SCH (09:07)
[2022-10-12] MEDS: Metoprolol Tartrate 50 MG TAB PO SCH ×2 (09:07→21:24)
[2022-10-12] MEDS: Losartan 25 MG TAB PO SCH (09:08)
[2022-10-12] MEDS: hydrALAZINE 25 MG TAB PO SCH ×4 (09:08→21:23)
[2022-10-12] MEDS: tiZANidine HCl 4 MG TAB PO SCH (09:09)
[2022-10-12] MEDS: Timolol 0.5% Ophth Soln 5 ml Bottle EA EYE SCH ×2 (09:10→21:31)
[2022-10-12] MEDS: Saccharomyces boulardii 250 MG CAP PO SCH (09:11)
[2022-10-12] MEDS: Lansoprazole 3 MG/ML ORAL SUSPENSION PER TUBE SCH (09:20)
[2022-10-12] MEDS: Atorvastatin Calcium 40 MG TAB PO SCH (21:23)
[2022-10-12] MEDS: Latanoprost 0.005% Ophth Soln 2.5 ml Bottle EA EYE SCH (21:34)
[2022-10-13] MEDS: Acetaminophen 325 MG TAB PO SCH ×3 (01:00→17:08)
[2022-10-13 05:43] LABS: #Basophils 0.1 thou/uL (0.0-0.2); #Lymphocytes 1.3 thou/uL (1.20-3.40); #Monocytes 0.7 thou/uL (0.11-0.59); #Neutrophils 4.5 thou/uL (1.40-6.50); %Basophils 0.9 % (0.0-1.0); %Eosinophils 0.3 % (0.0-10.0); %Lymphocytes 19.3 % (21.0-51.0); %Monocytes 10.9 % (0.0-10.0); %Neutrophils 68.5 % (42.0-75.0); Hemoglobin 12.6 g/dL (12.0-16.0); Mean Corpuscular HGB CONC 34.1 g/dL (32.0-36.0); Mean Corpuscular Hemoglobin 29.9 pg (27.0-31.0); Mean Corpuscular Volume 87.6 fl (78.0-98.0); Mean Platelet Volume 9.8 fL (7.4-10.4); Platelet Count 188 10x3/uL (130-400); RBC Distribution Width 14.9 % (11.5-14.5); Red Blood Cell (RBC) Count 4.23 mill/uL (4.20-5.40); White Blood Cell (WBC) Count 6.6 10x3/uL (4.8-10.8)
[2022-10-13 05:59] LABS: ALT (SGPT) 16 U/L (8-55); Albumin 3.6 g/dL (3.4-4.8); Alkaline Phosphatase 101 U/L (40-110); Anion Gap 18 mmol/L (10-20); BUN (Urea Nitrogen) 12 mg/dL (9.8-20.1); Bilirubin, Total 0.8 mg/dL (0.2-1.2); Calc. Creatinine Clearance 71 mL/min (70-130); Calcium 9.1 mg/dL (7.8-10.44); Carbon Dioxide 19 mmol/L (23-31); Chloride 109 mmol/L (98-107); Estimated GFR 84; Glucose 102 mg/dL (83-110); Potassium 3.9 mmol/L (3.5-5.1); Protein, Total 6.6 g/dL (5.8-8.1); Sodium 142 mmol/L (136-145)
[2022-10-13 06:15] LABS: AST (SGOT) 28 U/L (5-34)
[2022-10-13] MEDS: Dorzolamide HCl 2% Ophth Soln 10 ml Bottle EA EYE SCH ×2 (08:34→21:18)
[2022-10-13] MEDS: Potassium Chloride 20 MEQ TAB PO SCH (08:35)
[2022-10-13] MEDS: hydrALAZINE 25 MG TAB PO SCH ×3 (08:36→21:18)
[2022-10-13] MEDS: Losartan 25 MG TAB PO SCH (08:37)
[2022-10-13] MEDS: Saccharomyces boulardii 250 MG CAP PO SCH (08:37)
[2022-10-13] MEDS: tiZANidine HCl 4 MG TAB PO SCH (08:38)
[2022-10-13] MEDS: Metoprolol Tartrate 50 MG TAB PO SCH ×2 (08:38→21:18)
[2022-10-13] MEDS: Timolol 0.5% Ophth Soln 5 ml Bottle EA EYE SCH ×2 (08:39→21:19)
[2022-10-13] MEDS: Lansoprazole 3 MG/ML ORAL SUSPENSION PER TUBE SCH (08:49)
[2022-10-13] MEDS: Latanoprost 0.005% Ophth Soln 2.5 ml Bottle EA EYE SCH (21:18)
[2022-10-13] MEDS: Atorvastatin Calcium 40 MG TAB PO SCH (21:18)
[2022-10-14] MEDS: Acetaminophen 325 MG TAB PO SCH ×3 (01:00→17:38)
[2022-10-14] MEDS: Dorzolamide HCl 2% Ophth Soln 10 ml Bottle EA EYE SCH ×2 (10:07→20:53)
[2022-10-14] MEDS: Potassium Chloride 20 MEQ TAB PO SCH (10:07)
[2022-10-14] MEDS: Saccharomyces boulardii 250 MG CAP PO SCH (10:08)
[2022-10-14] MEDS: Losartan 25 MG TAB PO SCH (10:08)
[2022-10-14] MEDS: Metoprolol Tartrate 50 MG TAB PO SCH ×2 (10:09→20:52)
[2022-10-14] MEDS: Lansoprazole 3 MG/ML ORAL SUSPENSION PER TUBE SCH (10:09)
[2022-10-14] MEDS: tiZANidine HCl 4 MG TAB PO SCH (10:10)
[2022-10-14] MEDS: Timolol 0.5% Ophth Soln 5 ml Bottle EA EYE SCH ×2 (10:10→20:52)
[2022-10-14] MEDS: hydrALAZINE 25 MG TAB PO SCH ×3 (11:27→20:52)
[2022-10-14] MEDS: Atorvastatin Calcium 40 MG TAB PO SCH (20:52)
[2022-10-14] MEDS: Latanoprost 0.005% Ophth Soln 2.5 ml Bottle EA EYE SCH (20:53)
[2022-10-15] MEDS: Acetaminophen 325 MG TAB PO SCH ×3 (01:00→16:14)
[2022-10-15] MEDS: Potassium Chloride 20 MEQ TAB PO SCH (08:11)
[2022-10-15] MEDS: Losartan 25 MG TAB PO SCH (08:11)
[2022-10-15] MEDS: Saccharomyces boulardii 250 MG CAP PO SCH (08:11)
[2022-10-15] MEDS: hydrALAZINE 25 MG TAB PO SCH ×3 (08:12→20:03)
[2022-10-15] MEDS: Metoprolol Tartrate 50 MG TAB PO SCH ×2 (08:12→21:27)
[2022-10-15] MEDS: tiZANidine HCl 4 MG TAB PO SCH (08:14)
[2022-10-15] MEDS: Lansoprazole 3 MG/ML ORAL SUSPENSION PER TUBE SCH (08:15)
[2022-10-15] MEDS: Dorzolamide HCl 2% Ophth Soln 10 ml Bottle EA EYE SCH ×2 (10:12→21:28)
[2022-10-15] MEDS: Timolol 0.5% Ophth Soln 5 ml Bottle EA EYE SCH ×2 (10:13→21:37)
[2022-10-15] MEDS: Atorvastatin Calcium 40 MG TAB PO SCH (21:27)
[2022-10-15] MEDS: Latanoprost 0.005% Ophth Soln 2.5 ml Bottle EA EYE SCH (21:37)
[2022-10-16] MEDS: Acetaminophen 325 MG TAB PO SCH ×4 (00:10→15:51)
[2022-10-16] MEDS: Saccharomyces boulardii 250 MG CAP PO SCH ×2 (10:44→16:43)
[2022-10-16] MEDS: Potassium Chloride 20 MEQ TAB PO SCH ×2 (10:45→16:39)
[2022-10-16] MEDS: Dorzolamide HCl 2% Ophth Soln 10 ml Bottle EA EYE SCH ×2 (10:45→22:30)
[2022-10-16] MEDS: Timolol 0.5% Ophth Soln 5 ml Bottle EA EYE SCH ×2 (10:46→22:30)
[2022-10-16] MEDS: Lansoprazole 3 MG/ML ORAL SUSPENSION PER TUBE SCH ×2 (10:48→16:39)
[2022-10-16] MEDS: Metoprolol Tartrate 50 MG TAB PO SCH ×3 (10:48→22:30)
[2022-10-16] MEDS: Bisacodyl 5 MG TAB PO PRN (10:49)
[2022-10-16] MEDS: tiZANidine HCl 4 MG TAB PO SCH ×2 (10:50→16:43)
[2022-10-16 16:11] LABS: #Basophils 0.1 thou/uL (0.0-0.2); #Lymphocytes 1.5 thou/uL (1.20-3.40); #Monocytes 0.9 thou/uL (0.11-0.59); #Neutrophils 5.7 thou/uL (1.40-6.50); %Basophils 0.8 % (0.0-1.0); %Eosinophils 0.2 % (0.0-10.0); %Lymphocytes 18.7 % (21.0-51.0); %Monocytes 11.4 % (0.0-10.0); Hemoglobin 13.4 g/dL (12.0-16.0); Mean Corpuscular HGB CONC 34.3 g/dL (32.0-36.0); Mean Corpuscular Hemoglobin 30.1 pg (27.0-31.0); Mean Corpuscular Volume 87.7 fl (78.0-98.0); Mean Platelet Volume 11.2 fL (7.4-10.4); Platelet Count 180 10x3/uL (130-400); RBC Distribution Width 15.2 % (11.5-14.5); Red Blood Cell (RBC) Count 4.45 mill/uL (4.20-5.40); White Blood Cell (WBC) Count 8.2 10x3/uL (4.8-10.8)
[2022-10-16 16:24] LABS: ALT (SGPT) 13 U/L (8-55); AST (SGOT) 19 U/L (5-34); Albumin 3.6 g/dL (3.4-4.8); Alkaline Phosphatase 94 U/L (40-110); Anion Gap 15 mmol/L (10-20); BUN (Urea Nitrogen) 13 mg/dL (9.8-20.1); Bilirubin, Total 0.9 mg/dL (0.2-1.2); Calc. Creatinine Clearance 58 mL/min (70-130); Calcium 9.7 mg/dL (7.8-10.44); Carbon Dioxide 25 mmol/L (23-31); Chloride 107 mmol/L (98-107); Estimated GFR 70; Glucose 144 mg/dL (83-110); Potassium 3.5 mmol/L (3.5-5.1); Protein, Total 6.6 g/dL (5.8-8.1); Sodium 143 mmol/L (136-145)
[2022-10-16] MEDS: hydrALAZINE 25 MG TAB PO SCH ×2 (16:39→22:31)
[2022-10-16] MEDS: Losartan 25 MG TAB PO SCH (16:40)
[2022-10-16 20:03] LABS: Bilirubin Negative (Negative); Blood, Urine Moderate (Negative); Clarity Cloudy (Clear); Glucose, Urine (Dipstick) Negative (Negative); Ketone, Urine Trace mg/dL (Negative); Leukocyte Large (Negative); Nitrite Negative (Negative); Protein, Urine (Dipstick) 100 mg/dL (Neg-Trace)
[2022-10-16 20:10] LABS: Bacteria/HPF 4+ HPF (None Seen); CAUTI Indications for Culture Alt mental st,lethar; WBC/HPF Greater than 50 HPF (0-3)
[2022-10-16 20:14] LABS: Squamous Epithelial 0-3 HPF (0-3)
[2022-10-16 20:19] LABS: Urine Culture Reflex Yes Yes
[2022-10-16] MEDS: Latanoprost 0.005% Ophth Soln 2.5 ml Bottle EA EYE SCH (22:30)
[2022-10-16] MEDS: Atorvastatin Calcium 40 MG TAB PO SCH (22:31)
[2022-10-16] MEDS ORDERED: Sulfameth/Trimethoprim DS 800-160mg TAB PO SCH (22:45)
[2022-10-17] MEDS: Acetaminophen 325 MG TAB PO SCH ×3 (01:00→17:38)
[2022-10-17] MEDS: Sulfameth/Trimethoprim DS 800-160mg TAB PO SCH ×2 (10:55→20:59)
[2022-10-17] MEDS: Dorzolamide HCl 2% Ophth Soln 10 ml Bottle EA EYE SCH ×2 (10:55→20:59)
[2022-10-17] MEDS: Metoprolol Tartrate 50 MG TAB PO SCH ×2 (10:56→20:59)
[2022-10-17] MEDS: Saccharomyces boulardii 250 MG CAP PO SCH (10:56)
[2022-10-17] MEDS: Losartan 25 MG TAB PO SCH (10:56)
[2022-10-17] MEDS: hydrALAZINE 25 MG TAB PO SCH ×3 (10:56→20:58)
[2022-10-17] MEDS: Potassium Chloride 20 MEQ TAB PO SCH (10:57)
[2022-10-17] MEDS: Bisacodyl 5 MG TAB PO PRN (10:57)
[2022-10-17] MEDS: Timolol 0.5% Ophth Soln 5 ml Bottle EA EYE SCH ×2 (10:58→20:59)
[2022-10-17] MEDS: Lansoprazole 3 MG/ML ORAL SUSPENSION PER TUBE SCH (11:05)
[2022-10-17] MEDS: tiZANidine HCl 4 MG TAB PO SCH (14:43)
[2022-10-17] MEDS ORDERED: Bisacodyl 10 MG SUPP PR PRN (16:25)
[2022-10-17] MEDS ORDERED: Ondansetron ODT 4 MG TAB PO PRN (16:52)
[2022-10-17] MEDS ORDERED: Fleet Enema 133 ML BOT PR PRN (17:17)
[2022-10-17] MEDS ORDERED: Potassium Bicarbonate/Cit Ac 20 MEQ TAB PO SCH (18:30)
[2022-10-17] MEDS: Atorvastatin Calcium 40 MG TAB PO SCH (20:58)
[2022-10-17] MEDS: Latanoprost 0.005% Ophth Soln 2.5 ml Bottle EA EYE SCH (20:59)
[2022-10-18] MEDS: Acetaminophen 325 MG TAB PO SCH ×2 (02:00→08:34)
[2022-10-18 06:15] VITALS: TEMP 98.9
[2022-10-18] MEDS ORDERED: Potassium Bicarbonate/Cit Ac 20 MEQ TAB PO SCH ×2 (08:00→17:00)
[2022-10-18] MEDS: tiZANidine HCl 4 MG TAB PO SCH (08:34)
[2022-10-18] MEDS: Saccharomyces boulardii 250 MG CAP PO SCH (08:35)
[2022-10-18] MEDS: hydrALAZINE 25 MG TAB PO SCH (08:35)
[2022-10-18] MEDS: Bisacodyl 5 MG TAB PO PRN (08:35)
[2022-10-18] MEDS: Metoprolol Tartrate 50 MG TAB PO SCH (08:35)
[2022-10-18] MEDS: Sulfameth/Trimethoprim DS 800-160mg TAB PO SCH (08:36)
[2022-10-18] MEDS: Losartan 25 MG TAB PO SCH (08:36)
[2022-10-18] MEDS: Lansoprazole 3 MG/ML ORAL SUSPENSION PER TUBE SCH (08:36)
[2022-10-18] MEDS: Dorzolamide HCl 2% Ophth Soln 10 ml Bottle EA EYE SCH (09:40)
[2022-10-18] MEDS: Timolol 0.5% Ophth Soln 5 ml Bottle EA EYE SCH (09:40)
[2022-10-18 20:04] VITALS: BP 158/67
== END 2022-10-18 09:50 | disposition short-term general hospital (02) | DRG 948 ==
LOC: BURMED 18:55
PROVIDERS: ADMIT Family Medicine; ATTEND Family Medicine
DX: R53.1 Weakness (principal); N39.0 Urinary tract infection, site not specified; I10 Essential (primary) hypertension; E78.5 Hyperlipidemia, unspecified; E87.6 Hypokalemia; R33.9 Retention of urine, unspecified; Z20.822 Contact with and (suspected) exposure to COVID-19; I95.9 Hypotension, unspecified
CPT/HCPCS: 36415; 36416; 70450; 74018; 80048; 80053; 81001; 81003; 81015; 85025; 87077; 87086; 87186; 87811; J7050; Q0162; U0003; U0005

== ENCOUNTER 2022-10-18 09:55 | Emergency (ER) | payer MEDICARE, BC, OTHER ==
[2022-10-18] MEDS ORDERED: Norepinephrine 4 MG/4 ML VIAL ONE ×4 (10:07→10:24)
[2022-10-18] MEDS ORDERED: Ketamine 50 MG/ML (10ML VIAL) ONE (10:07)
[2022-10-18] MEDS ORDERED: Rocuronium Bromide 10 MG/ML (10ML VIAL) ONE (10:07)
[2022-10-18] MEDS ORDERED: cefTRIAXone\\ROCEPHIN 2 GM VIAL ONE (10:13)
[2022-10-18 10:27] LABS: #Monocytes 0.6 thou/uL (0.11-0.59); #Neutrophils 3.6 thou/uL (1.40-6.50); %Basophils 0.5 % (0.0-1.0); %Eosinophils 0.4 % (0.0-10.0); %Lymphocytes 19.3 % (21.0-51.0); %Monocytes 11.5 % (0.0-10.0); %Neutrophils 68.3 % (42.0-75.0); Hemoglobin 10.9 g/dL (12.0-16.0); Mean Corpuscular HGB CONC 34.2 g/dL (32.0-36.0); Mean Corpuscular Hemoglobin 29.9 pg (27.0-31.0); Mean Corpuscular Volume 87.4 fl (78.0-98.0); Platelet Count 155 10x3/uL (130-400); RBC Distribution Width 15.2 % (11.5-14.5); Red Blood Cell (RBC) Count 3.64 mill/uL (4.20-5.40); White Blood Cell (WBC) Count 5.3 10x3/uL (4.8-10.8)
[2022-10-18 10:36] LABS: Base Excess-Venous 0.9 mmol/L (-2.0 to 3.0); Bicarbonate (HCO3v) 26.1 mmol/L (22.0-28.0); CO2 Tension (PvCO2) 42.9 mmHg (42.0-51.0); Calcium, Ionized 1.19 mmol/L (1.15-1.33); Chloride 102 mmol/L (98-107); Hemoglobin - Calc 10.2 g/dL (12.0-16.0); Potassium 3.4 mmol/L (3.5-5.1); Sodium 140 mmol/L (138-145); T. Carbon Dioxide 27.4 mmol/L (22.0-28.0); vO2 Saturation-calc 98.9 % (60.0-85.0)
[2022-10-18 10:38] LABS: ALT (SGPT) 12 U/L (8-55); AST (SGOT) 20 U/L (5-34); Albumin 3.1 g/dL (3.4-4.8); Alkaline Phosphatase 73 U/L (40-110); Anion Gap 12 mmol/L (10-20); BUN (Urea Nitrogen) 14 mg/dL (9.8-20.1); Bilirubin, Total 0.7 mg/dL (0.2-1.2); Calc. Creatinine Clearance 0 mL/min (70-130); Calcium 8.6 mg/dL (7.8-10.44); Carbon Dioxide 25 mmol/L (23-31); Chloride 106 mmol/L (98-107); Estimated GFR 68; Globulin 2.1 g/dL (2.4-3.5); Glucose 122 mg/dL (83-110); Potassium 3.6 mmol/L (3.5-5.1); Protein, Total 5.2 g/dL (5.8-8.1); Sodium 139 mmol/L (136-145)
[2022-10-18] MEDS ORDERED: Vancomycin 1 GM VIAL ONE (10:40)
== END 2022-10-18 11:10 | disposition short-term general hospital (02) ==
LOC: BURERS 09:55
DX: A41.9 Sepsis, unspecified organism (principal); R65.21 Severe sepsis with septic shock; N39.0 Urinary tract infection, site not specified; R41.82 Altered mental status, unspecified; E78.5 Hyperlipidemia, unspecified; E78.00 Pure hypercholesterolemia, unspecified; I10 Essential (primary) hypertension
CPT/HCPCS: 51702; 71045; 80053; 82330; 82803; 83605; 85025; 87040; 96365; 96368; 96375; 36415-59; J0696; J3370